=== PATIENT | female | born 1965 | race Caucasian/White ===

== ENCOUNTER 2017-03-07 10:52 | Outpatient (CLI) | payer OTHER ==
[~2017-03-07 10:52] MED LIST: CHELATED POTASS95 MG PO; DHEA PO; ESTRADIOL0.05 MG TOP; FISH OIL500 MG PO; HYDROCHLOROTHIA25 MG PO; MULTIPLE VITAMIN PO; PROBIOTI1 PO; VITAMIN D-31000 UNIT PO; VITAMIN E200 UNIT PO; ZYRTEC ALLERGY10 MG PO; [UNRECOGNIZED DRUG - OTHER] PO
--- NOTE | 2017-03-07 15:49 | DIAGNOSTIC IMAGING REPORT ---
PROCEDURE: MR LOWER EXT JOINT WO CONT-RT INDICATION: RT KNEE PAIN, fall 4 weeks ago, posterior, medial, and lateral pain. TECHNIQUE: PD axial, T1 and PD fat sat coronal, PD and PD fat sat sagittal, and sagittal oblique STIR sequence through the ACL. COMPARISON: None FINDINGS: Menisci: There is a complex tear of the posterolateral aspect of the lateral meniscus. There is a horizontal tear through the anterior horn and body, which posteriorly, appears quite diminutive and irregular. There is increased amount of meniscal signal within the anterior lateral intercondylar notch suggestive of flipped meniscal fragment. There is fragmentation and complex tear involving the posterior horn lateral meniscus as well as the free edge tear. There is an undersurface tear involving the posterior horn of the medial meniscus, which extends nearly to the root. There is intrinsic degenerative signal within the posterior medial meniscus near the root. A tiny free edge perforation of the mid body is seen. Ligaments: Cruciate ligaments are intact. Mild edema at the origin of the fibula collateral ligament which is otherwise normal in thickness and signal. The rest of the lateral collateral ligament complex is intact. Intermediate signal and striated appearance at the origin of the popliteus tendon. The rest of the posterolateral corner and medial collateral ligaments appear intact. Extensor mechanism: Normal. Osseous structures and articular surfaces: Full-thickness cartilage loss along the posterior aspect of the lateral tibial plateau and mid to posterior lateral femoral condylar weightbearing surface. Moderate marginal spur formation. Mild tibial plateau subchondral sclerosis and cystic change. Mild medial compartment cartilage fissuring without full-thickness loss. Mild marginal spur formation medially. The patellofemoral compartment demonstrates normal cartilage thickness. There is normal marrow signal. Normal osseous alignment. Fluid, soft tissues, and joint space: Mild synovial thickening lateral to the lateral femoral condyle and small reactive joint effusion present. There is slight fluid around the popliteus tendon but normal signal in the myotendinous junction. The muscles are normal in bulk, signal, muscles and tendinous attachments appear otherwise normal in bulk and signal. No bursitis or significant subcutaneous edema. Varicose veins in the lateral subcutaneous tissue. IMPRESSION: 1. Extensive tear involving the lateral meniscus. There is probably a flipped meniscal fragment into the anterior portion of the lateral compartment. 2. Posterior horn medial meniscal undersurface tear and tiny midbody free edge perforation. 3. Full-thickness cartilage loss involving both articular surfaces of the lateral compartment with marginal spur formation and minor subchondral signal change in the tibial plateau. 4. Low grade strain at the origin of the lateral collateral ligament and partial tearing at the origin of the popliteus tendon. 5. Mild synovitis and small suprapatellar joint effusion.
== END 2017-03-07 23:00 ==
LOC: MRI SRH 10:52
DX: M23.200 Derangement of unspecified lateral meniscus due to old tear or injury, right knee (principal); M23.221 Derangement of posterior horn of medial meniscus due to old tear or injury, right knee; S83.421A Sprain of lateral collateral ligament of right knee, initial encounter; M25.461 Effusion, right knee